=== PATIENT | female | born 1955 | race African-American/Black ===

== ENCOUNTER 2019-01-21 01:24 | Emergency (ER) | payer OTHER ==
[~2019-01-21] VITALS: Ht 177.8 cm; Wt 77.1 kg
--- NOTE | 2019-01-21 01:57 | NUR ---
PT BIB EMS FROM [facility] C/O UNWITNESSED GLF, PT FOUND ON THE GROUND, TO ER BED 4, BP ELEVATED, ALL OTHER VITALS STABLE, NO COMPLAINT OF PAIN OR DISCOMFORT AT THIS TIME.
[2019-01-21] MEDS ORDERED: hydrALAZINE HCL IV 20 MG VIAL IV ONE (02:00)
[2019-01-21] MEDS ORDERED: hydrALAZINE HCL IV 20 MG VIAL ONE (02:00)
[2019-01-21 02:26] LABS: BASOPHILS # (AUTO) 0.1 /CMM (0.0-0.2); BASOPHILS % (AUTO) 1.2 % (0.0-2.0); EOSINOPHILS % (AUTO) 3.1 % (0.0-6.0); HEMATOCRIT 35 % (33-45); HEMOGLOBIN 11.2 g/dL (11.5-14.8); LYMPHOCYTES % (AUTO) 21.4 % (20.0-44.0); MEAN CORPUSCULAR HGB CONC 33 g/dl (31.0-36.0); MEAN CORPUSCULAR VOLUME 90 fL (82-100); MONOCYTES # (AUTO) 0.9 /CMM (0.1-1.30); MONOCYTES % (AUTO) 9.9 % (2.0-12.0); NEUTROPHILS # (AUTO) 6.1 /CMM (1.8-8.9); NEUTROPHILS % (AUTO) 64.4 % (43.0-81.0); PLATELET COUNT (AUTO) 475 /CMM (150-450); RED BLOOD CELL COUNT(AUTO) 3.84 MIL/uL (4.0-5.2); WHITE BLOOD COUNT (AUTO) 9.4 K/uL (4.3-11.0)
[2019-01-21 02:37] LABS: ALBUMIN 2.7 g/dL (3.4-5.0); BILIRUBIN,DIRECT 0.1 mg/dL (0.0-0.2); BILIRUBIN,TOTAL 0.4 mg/dL (0.2-1.0); CALCIUM, SERUM 9.2 mg/dL (8.5-10.1); CREATININE 0.5 mg/dL (0.6-1.3); POTASSIUM 3.4 mmol/L (3.5-5.1); TOTAL PROTEIN, SERUM 7.6 g/dL (6.4-8.2)
--- NOTE | 2019-01-21 02:56 | NUR ---
PT TAKEN TO CT
--- NOTE | 2019-01-21 03:49 | NUR ---
PT REMAINS IN BED, SLEEPING COMFORTABLY, NO APPARENT PAIN OR DISCOMFORT
--- NOTE | 2019-01-21 04:40 | NUR ---
PAGED JOSÉ MIGUEL FISHERP
--- NOTE | 2019-01-21 04:52 | NUR ---
HARESH JIMENEZ ON PHONE WITH DR HEREDIA FROM [facility]
--- NOTE | 2019-01-21 06:15 | NUR ---
[facility]. ALS DR RICHEY. TRANSFER ER ETA [id number].
--- NOTE | 2019-01-21 06:24 | NUR ---
CALLED IN REPORT TO [facility] ER
--- NOTE | 2019-01-21 07:04 | NUR ---
REPORT GIVEN TO TRANSPORT
[2019-01-21 07:16] VITALS: BP 170/92
== END 2019-01-21 07:18 ==
LOC: ER 01:25
DX: R55 Syncope and collapse (principal); F03.90 Unspecified dementia, unspecified severity, without behavioral disturbance, psychotic disturbance, mood disturbance, and anxiety; R53.1 Weakness; I10 Essential (primary) hypertension; E11.9 Type 2 diabetes mellitus without complications; Z87.440 Personal history of urinary (tract) infections; Z86.73 Personal history of transient ischemic attack (TIA), and cerebral infarction without residual deficits; W18.39XA Other fall on same level, initial encounter; Y93.89 Activity, other specified; Y92.89 Other specified places as the place of occurrence of the external cause; Y99.8 Other external cause status
CPT/HCPCS: 36415; 70450; 71045; 72125; 80048; 80076; 82962; 84484; 85025; 85730; 93005; 96374; 99285; J0360